=== PATIENT | male | born 1985 | race Caucasian/White ===

== ENCOUNTER → 2024-03-26 14:54 | Outpatient (REF) | payer BC, SELFPAY | LOC: EMG 14:54 | PROVIDERS: ATTENDING PHYSICIAN Orthopaedic Surgery; FAMILY PHYSICIAN Nurse Practitioner Family | DX: R20.0 Anesthesia of skin (principal) | CPT/HCPCS: 95886; 95909 ==

== ENCOUNTER 2024-05-12 20:32 | Emergency (ER) | payer BC, SELFPAY ==
[2024-05-12 20:38] VITALS: BP 155/89
[2024-05-12 21:00] LABS: % Basophils 0.4 % (0-2); % Eosinophils 1.5 % (0-6); % Immature Granulocytes 0.4 % (0-0.5); % Lymphocytes 44.5 % (20.5-51.1); % Neutrophils 44.2 % (42.2-75.2); Absolute Eosinophils 0.1 10^3/uL (0-0.7); Absolute Lymphocytes 2.4 10^3/uL (1.2-3.4); Absolute Monocytes 0.5 10^3/uL (0.1-0.6); Absolute Neutrophils 2.4 10^3/uL (1.4-6.5); Hematocrit 44.6 % (39.0-52.0); Hemoglobin 15.2 g/dL (13.0-18.0); Mean Corp Hgb Conc. 34.1 g/dL (33.0-37.0); Mean Platelet Volume 9.8 fL (7.4-10.4); Nucleated Red Blood Cells % 0 % (-); Platelet Count 178 10^3/uL (130-400); Red Blood Cell Count 5.07 10^6/uL (4.70-6.10); Red Cell Dist. Width 13.2 % (11.5-14.5); White Blood Cell Count 5.3 10^3/uL (4.8-10.8)
[2024-05-12 21:21] LABS: Troponin I < 0.012 ng/ml
[2024-05-12 21:27] LABS: ALT (SGPT) 41 U/L (0-50); AST (SGOT) 29 U/L (17-59); Albumin 4.4 g/dl (3.5-5.0); Alkaline Phosphatase 50 U/L (38-126); Blood Urea Nitrogen 13 mg/dl (9-20); Calcium 8.7 mg/dl (8.4-10.2); Carbon Dioxide 27 mmol/L (22-30); Chloride 102 mmol/L (98-107); Glucose 100 mg/dl (70-99); Potassium 3.9 mmol/L (3.5-5.1); Sodium 137 mmol/L (135-145); Total Bilirubin 0.6 mg/dl (0.2-1.3); Total Protein 6.7 g/dl (6.3-8.2); eGFR > 60.00
--- NOTE | 2024-05-13 00:36 | ED.GENMED ---
History of Present Illness
General
Chief Complaint: Chest Pain
Source: patient
Exam Limitations: none
Time Seen by Provider: 05/13/24 00:34
Nursing documentation reviewed up to this point in time: agreed with
History of Present Illness
History of Present Illness:
38-year-old male presents emergency room complaining of chest pain for the past 4 days. He denies any injury. No aggravating or alleviating factors. He has had pancreatitis in the past, and this feels different.
Past History
Past History
ED Past Medical History: Hypercholesterolemia and Other (Pancreatitis and hyperlipidemia)
Social History
Tobacco: Non-smoker
Alcohol: Occasional
Drug: None
Personal:
Living: with family
Employment: Employed
Family History
Family History: Other (Noncontributory)
Review of Systems
Review of Systems
Allergies reviewed?: Yes
All Other Systems: Not applicable
Constitutional: Reports no symptoms
EENT: Reports no symptoms
Respiratory: Reports no symptoms
Cardiac: Reports chest pain
ABD/GI: Reports no symptoms
: Reports no symptoms
Musculoskeletal: Reports no symptoms
Skin: Reports no symptoms
Neurological: Reports no symptoms
Endocrine: Reports no symptoms
Hematologic/Lymphatic: Reports no symptoms
Psychiatric: Reports no symptoms
Phy Exam
Physical Exam
Physical Exam:
Physical Exam
General: no apparent distress, not acutely ill
Neck: supple. no meningeal signs. normal posterior pharynx
Heart: s1/s2 regular rate and rhythm, no murmur. equal radial
pulses.
HEENT: Pupils equal round reactive to light, EOMI
Lungs: no acute respiratory distress. clear bilaterally
Abdomen: normal bowel sounds. not tender. no CVAT
Neuro: alert and oriented. no focal neurological deficits cranial nerves II through XII intact
Skin: no rash
Psychiatric: well kept. interactive and cooperative
Extremities: no edema. no calf tenderness. negative homans. good distal pulses
Scores
Heart Score for Chest Pain Patients
STEMI patient?: No
History: Slightly or Non-Suspicious
ECG: Normal
Age: </= 45 years
Risk Factors: 1 or 2 Risk Factors
Troponin: </= Normal Limit
Heart Score for Chest Pain Patients: 1
Heart Score Risk: 2.5% MACE over next 6 weeks
Course
Orders/Labs/Results
Orders:
Orders
05/12/24
ECG [Electrocardiogram (*1)] Urgent
Reason for Study: Chest Pain
05/12/24 20:33
EKG- Treatment ONCE
05/12/24 20:41
CR Chest - 2 Views Urgent
Comment:
Reason For Exam: respiratory distress
05/12/24 20:43
Complete Blood Count/With Diff Urgent
Comprehensive Metabolic Panel Urgent
Lipase Urgent
Comment: ADD ON
Troponin I Urgent
05/13/24 00:37
Add On- LAB Urgent
Tests Added?: lipase
Abnormal Lab Results
05/12/24
20:43
Glucose 100 H mg/dl
(70-99)
05/12/24 20:43
05/12/24 20:43
Vital Signs
Initial and Last Documented VS:
Initial Vital Signs
Temp Pulse Resp BP Pulse Ox
98.3 F 62 16 155/89 100
05/12/24 20:38 05/12/24 20:38 05/12/24 20:38 05/12/24 20:38 05/12/24 20:38
Last Documented Vital Signs
Temp Pulse Resp BP Pulse Ox
98.3 F 62 16 155/89 100
05/12/24 20:38 05/12/24 20:38 05/12/24 20:38 05/12/24 20:38 05/12/24 20:38
MDM/Problems Addressed
Differential Diagnosis Includes:
ACS, PE
MDM/Problems Addressed:
38-year-old male with chest pain, unclear etiology. Normal EKG and negative troponin after several days of chest pain. Stable for discharge. Follow-up with cardiology. Return precautions given.
Chronic conditions affecting care: Other (Hyperlipidemia)
*Radiology
Radiology exam reviewed: preliminary read by ED provider (Chest x-ray no acute findings)
*Pulse Oximetry
Patient hypoxic: no
*EKG
Interpreted by ED Provider?: Yes
EKG Intrepretation Date: 05/13/24
EKG Intrepretation Time: 20:36
Interpretation: abnormal
Comparison EKG: no comparison EKG present
Heart Rate: 59
Rate: normal
Rhythm: sinus
Wells: normal axis
Interval: normal interval
QRS Pattern: normal QRS
Ischemia: no ischemia
*Law Writer Interpretation
Rate: normal
Interpretation: normal
Heart Rate: 62
Rhythm: sinus
*Critical Care Note
Total Time (30-74mins, 75-104mins- exclusive of procedures): Not Applicable
Patient Management
Social determinants of health affecting care: Living situation
Escalation/DeEscalation of care consider admission/obs:
Admission not indicated
ED Attending Note
-
Portions of this chart may have been created with voice recognition software.� Occasional wrong word or��sound alike� substitutions may have occurred due to the inherent limitations of voice recognition software.
Discharge Plan
Departure
Patient Disposition: Home (Routine Discharge)
Date of Disposition: 05/13/24
Time of Disposition: 01:10
Patient with high blood pressure during this ER visit?: Yes
Condition: Good
Discharge Problem:
Chest pain
Instructions: Chest Pain CBC Follow Up, BLOOD PRESSURE
Prescriptions:
No Action
pantoprazole 40 MG tablet,delayed release (DR/EC)
40 mg PO DAILY Qty: 30 0RF
oxycodone 5 mg tablet
5 - 10 mg PO Q4HPRN PRN (Reason: moderate to severe pain) Qty: 20 0RF
fenofibric acid (choline) 135 mg capsule,delayed release(DR/EC)
135 mg PO DAILY
ondansetron 4 mg tablet,disintegrating
4 mg PO Q8H PRN (Reason: nausea) Qty: 8 0RF
Referrals:
UNKNOWN - PT DOES,NOT KNOW [Family Provider] -
Interventions
Interventions:
*Risk Screen - Suicide Last Done: 05/12/24 20:38
*Neglect/Abuse Screening Last Done: 05/12/24 20:38
Discharge Date and Time
Print Language: SLOVENIAN
[2024-05-13 01:27] LABS: Lipase 103 U/L (23-300)
== END 2024-05-13 01:15 | disposition home or self-care (01) ==
LOC: EMR 20:32
PROVIDERS: Emergency Medicine; EMERGENCY PHYSICIAN Emergency Medicine
DX: R07.89 Other chest pain (principal); R03.0 Elevated blood-pressure reading, without diagnosis of hypertension
CPT/HCPCS: 99284; 71046; 80053; 83690; 84484; 85025; 93005

== ENCOUNTER 2024-08-29 13:17 | Emergency (ER) | payer BC, SELFPAY ==
[2024-08-29 13:19] VITALS: BP 145/85
[2024-08-29 13:47] LABS: Hematocrit 47.6 % (39.0-52.0); Hemoglobin 16.3 g/dL (13.0-18.0); Mean Corp Hgb Conc. 34.2 g/dL (33.0-37.0); Mean Corpuscular Hgb 29.8 pg (27.0-31.0); Mean Platelet Volume 10.4 fL (7.4-10.4); Platelet Count 124 10^3/uL (130-400); Red Blood Cell Count 5.47 10^6/uL (4.70-6.10); Red Cell Dist. Width 12.5 % (11.5-14.5); White Blood Cell Count 2.3 10^3/uL (4.8-10.8)
[2024-08-29 13:49] LABS: ALT (SGPT) 62 U/L (0-50); AST (SGOT) 41 U/L (17-59); Albumin 4.6 g/dl (3.5-5.0); Alkaline Phosphatase 39 U/L (38-126); Blood Urea Nitrogen 12 mg/dl (9-20); Calcium 9.2 mg/dl (8.4-10.2); Carbon Dioxide 26 mmol/L (22-30); Chloride 107 mmol/L (98-107); Glucose 105 mg/dl (70-99); Lipase 119 U/L (23-300); Potassium 4.1 mmol/L (3.5-5.1); Sodium 139 mmol/L (135-145); Total Bilirubin 0.5 mg/dl (0.2-1.3); Total Protein 7.3 g/dl (6.3-8.2); eGFR > 60.00
[2024-08-29 14:44] LABS: % Basophils 0.9 % (0-2); % Eosinophils 3.1 % (0-6); % Immature Granulocytes 0.4 % (0-0.5); % Lymphocytes 27.8 % (20.5-51.1); % Monocytes 13.2 % (1.7-9.3); % Neutrophils 54.6 % (42.2-75.2); Absolute Eosinophils 0.1 10^3/uL (0-0.7); Absolute Lymphocytes 0.6 10^3/uL (1.2-3.4); Absolute Monocytes 0.3 10^3/uL (0.1-0.6); Absolute Neutrophils 1.2 10^3/uL (1.4-6.5); Nucleated Red Blood Cells % 0 % (-)
[2024-08-29 15:30] VITALS: BP 157/104
--- NOTE | 2024-08-29 15:33 | ED.GENMED ---
History of Present Illness
General
Chief Complaint: Abdominal Symptoms
Source: patient
Exam Limitations: none
Time Seen by Provider: 08/29/24 15:17
Nursing documentation reviewed up to this point in time: agreed with
History of Present Illness
History of Present Illness:
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
hypertriglyceridemia, who presents to the emergency department for evaluation of fevers, nausea, and abdominal pain that started 3 days ago. Patient reports that his symptoms seem to temporarily improve yesterday but then worsened overnight last
night and have been persistent ever since. Patient reports his pain is a 9 out of 10. Patient reports the pain is generalized and he is unable to really localize it. Patient reports nausea but denies vomiting. Patient reports he has had some
nonbloody diarrhea. Patient notes fevers over the past few days with a Tmax of 100.7 �F. Patient denies chest pain, shortness of breath, urinary symptoms. Patient denies any recent known sick contacts, denies any recent travel. Patient reports
taking Tylenol and TheraFlu at home but without improvement in his symptoms. He admits that he does feel achy particularly in his knees.
Past History
Past History
ED Past Medical History: Hypercholesterolemia and Other (Pancreatitis and hyperlipidemia)
Social History
Tobacco: Non-smoker
Alcohol: Occasional
Drug: None
Personal:
Living: with family
Employment: Employed
Family History
Family History: Other (Noncontributory)
Review of Systems
Review of Systems
Allergies reviewed?: Yes
All Other Systems: Not applicable
Constitutional: Reports fever
EENT: Reports no symptoms
Respiratory: Reports no symptoms
Cardiac: Reports no symptoms
ABD/GI: Reports abdominal pain, nausea, vomiting and diarrhea
: Reports no symptoms
Musculoskeletal: Reports joint pain
Skin: Reports no symptoms
Neurological: Reports no symptoms
Endocrine: Reports no symptoms
Hematologic/Lymphatic: Reports no symptoms
Psychiatric: Reports no symptoms
Phy Exam
General Physical Exam
General Presentation: well appearing and no apparent distress
General Skin: warm and dry
General Habitus: normal
General Mental: alert
General Hydration: appears well hydrated
ENT Exam
ENT Exam: EOMI, pharynx normal, neck supple and normocephalic
Eye Exam
Eye Exam: PERRL, cornea clear and conjunctiva normal
Cardiovascular Exam
Cardiovascular Exam: regular rate/rhythm, no edema, no murmur and normal peripheral pulses
Pulmonary Exam
Pulmonary Exam: lungs clear, no respiratory distress, no rales, no crackles, no rhonchi, no stridor, no wheezing and no cough
Gastrointestinal Exam
Gastrointestinal Exam: normal bowel sounds, soft, no organomegaly, no pulsatile mass and non distended
Palpation: generalized: Minimal tenderness
Neurological Exam
Neurological Exam: alert, oriented x3, no motor deficits and speech normal
Musculoskeletal Exam
Musculoskeletal Exam: full ROM and no edema
Skin Exam
Skin Exam: normal color, warm/dry, no rash and no petechia
Psychiatric Exam
Psychiatric Exam: normal mood/affect
Course
Orders/Labs/Results
Orders:
Orders
08/29/24 13:24
Complete Blood Count/With Diff Urgent
Comprehensive Metabolic Panel Urgent
Lipase Urgent
08/29/24 15:30
CT Abd/pelvis W Iv Cont Urgent
Comment:
Reason For Exam: abdominal pain/fever, low wbc, hx of pancreatitis
0.9% Sodium Chloride 1000 ml [Nss] 1,000 ml IV BOLUS
Morphine Sulfate 4 mg IV NOW STA
Ondansetron Injectable [Zofran] 4 mg IV NOW STA
08/29/24 15:38
Triglycerides Urgent
Influenza A+B Rapid Molecular Urgent
PENNIE Source: Nasal Swab
Specimen Description:
08/29/24 15:39
COVID-19 Antigen Urgent
Source: Nasal Swab
08/29/24 17:07
Famotidine [Pepcid] 20 mg IV NOW STA
Metoclopramide [Reglan] 10 mg IV NOW STA
Abnormal Lab Results
08/29/24
13:24
WBC 2.3 L* 10^3/uL
(4.8-10.8)
Plt Count 124 L 10^3/uL
(130-400)
Absolute Neuts (auto) 1.2 L 10^3/uL
(1.4-6.5)
Absolute Lymphs (auto) 0.6 L 10^3/uL
(1.2-3.4)
Monocytes % 13.2 H %
(1.7-9.3)
Glucose 105 H mg/dl
(70-99)
ALT 62 H U/L
(0-50)
08/29/24 13:24
08/29/24 13:24
Vital Signs
Initial and Last Documented VS:
Initial Vital Signs
Temp Pulse Resp BP Pulse Ox
98.6 F 103 17 145/85 99
08/29/24 13:19 08/29/24 13:19 08/29/24 13:19 08/29/24 13:19 08/29/24 13:19
Last Documented Vital Signs
Temp Pulse Resp BP Pulse Ox
98.6 F 87 22 103/90 96
08/29/24 13:19 08/29/24 17:15 08/29/24 17:15 08/29/24 17:00 08/29/24 17:15
*Critical Care Note
Total Time (30-74mins, 75-104mins- exclusive of procedures): Not Applicable
Update Note
Update Note:
38-year-old male with history of pancreatitis secondary to hypertriglyceridemia presents to the emergency department for evaluation of fevers, nausea, generalized abdominal pain associated with diarrhea. On arrival, patient is mildly hypertensive,
slightly tachycardic to 103 bpm, afebrile. On exam, patient is well-appearing, he is in no acute distress, he has generalized abdominal tenderness without rebound or guarding. Labs were obtained while the patient was in the waiting room and are
notable for a leukopenia of 2.3, the remainder of his labs are nonactionable. Given the patient's history and symptomatology, will obtain a CT of the abdomen pelvis to evaluate further. Will provide the patient with analgesia, antiemetics, IV
fluids, and reassess. Will also check a viral swab given the patient's fevers, body aches, diarrhea.
Patient's viral swab is negative for influenza, COVID-19. CT of the abdomen, demonstrates no acute abnormality other than splenomegaly. I am suspicious for a viral process. Case was discussed with the ED attending who agrees that the patient is
safe for discharge to home. On reevaluation, patient reports that he continues to feel nauseated and he has pain which feels like a sharp stabbing pain along with an empty feeling in his abdomen. Will give famotidine as well as metoclopramide and
reassess.
On reevaluation, patient reports that his nausea and abdominal pain is significantly decreased. He feels ready for discharge to home which I feel is appropriate. I will prescribe a few tabs of ondansetron to take if needed. Patient was educated
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 He expressed understanding of the plan and agreed.
ED Attending Note
-
Portions of this chart may have been created with voice recognition software.� Occasional wrong word or��sound alike� substitutions may have occurred due to the inherent limitations of voice recognition software.
Discharge Plan
Departure
Patient Disposition: Home (Routine Discharge)
Date of Disposition: 08/29/24
Time of Disposition: 17:47
Patient with high blood pressure during this ER visit?: No
Condition: Good
Covid-19: Negative COVID-19
Discharge Problem:
Viral gastroenteritis
Instructions: Viral gastroenteritis in adults
Prescriptions:
New
ondansetron 4 mg tablet,disintegrating
4 mg PO TIDPRN PRN (Reason: nausea/vomiting) 3 Days Qty: 5 0RF
No Action
pantoprazole 40 MG tablet,delayed release (DR/EC)
40 mg PO DAILY Qty: 30 0RF
oxycodone 5 mg tablet
5 - 10 mg PO Q4HPRN PRN (Reason: moderate to severe pain) Qty: 20 0RF
fenofibric acid (choline) 135 mg capsule,delayed release(DR/EC)
135 mg PO DAILY
ondansetron 4 mg tablet,disintegrating
4 mg PO Q8H PRN (Reason: nausea) Qty: 8 0RF
Referrals:
Kranthi Jensen MD [Family Provider] - Tomorrow
Activity Restrictions/Additional Instructions:
You were seen in the emergency department for evaluation of abdominal pain associated with nausea, diarrhea, and fevers. While you were in the emergency department you had blood work performed which shows a slightly low white blood cell count. The
remainder of your labs showed no abnormalities. You had a negative flu and COVID swab. You had a CT of your abdomen and pelvis which does show a mildly enlarged spleen but no other abnormalities. You feel better after receiving pain medicine and
nausea medicine as well as IV fluids. We suspect that your symptoms are due to a virus. We recommend trying to get plenty of rest and drinking plenty of fluids. You may take Tylenol 650 mg every 4-6 hours if needed for fever, not to exceed 3000
mg in 24 hours. When you start to feel hungry, please eat a bland diet such as bananas, rice, applesauce, toast. Please return to the emergency department if you develop worsening abdominal pain, persistent vomiting, blood in your stool, fever
greater than 101 �F, or for any other worsening or concerning symptoms.
Interventions
Interventions:
*Risk Screen - Suicide Last Done: 08/29/24 13:20
*General Assessment Last Done: 08/29/24 13:20
*Neglect/Abuse Screening Last Done: 08/29/24 13:20
*ED- Fall Risk Assessment Last Done: 08/29/24 15:54
*ED COVID-19 Vaccine History Last Done: 08/29/24 13:20
XK-Zzxjcf-Rzjlnzpncj Assessment Last Done: 08/29/24 15:54
Discharge Date and Time
Print Language: ARABIC
[2024-08-29] MEDS: ZOFRAN 4 MG IV (15:44)
[2024-08-29] MEDS: NSS 1000 IV (15:44)
[2024-08-29] MEDS: MORPHINE SULFATE 4 MG IV (15:45)
[2024-08-29 16:17] VITALS: BP 121/75
[2024-08-29 16:34] LABS: COVID-19 Antigen Negative (Negative)
[2024-08-29 16:36] LABS: Triglycerides 112 mg/dl (10-149)
[2024-08-29 17:00] VITALS: BP 103/90
[2024-08-29] MEDS: REGLAN 10 MG IV (17:18)
[2024-08-29] MEDS: PEPCID 20 MG IV (17:18)
== END 2024-08-29 17:56 | disposition home or self-care (01) ==
LOC: EMR 13:17
PROVIDERS: Physician Assistant Medical; EMERGENCY PHYSICIAN Emergency Medicine; FAMILY PHYSICIAN Internal Medicine Cardiovascular Disease
DX: A08.4 Viral intestinal infection, unspecified (principal); E78.2 Mixed hyperlipidemia; Z86.39 Personal history of other endocrine, nutritional and metabolic disease; Z11.52 Encounter for screening for COVID-19; Z79.899 Other long term (current) drug therapy
CPT/HCPCS: 96374; 96375; 96361; 99284; 74177; 80053; 83690; 84478; 85025; 87502; 87811; Q9967